=== PATIENT | female | born 1960 | race Caucasian/White ===

== ENCOUNTER 2021-05-29 23:42 | Emergency (ER) | payer OTHER, SELFPAY ==
[2021-05-30] MEDS ORDERED: traMADol HCl 50 MG TAB ONE ×2 (00:03)
[2021-05-30] MEDS ORDERED: Boostrix 0.5 ML (Tdap) VIAL ONE (00:19)
[2021-05-30] MEDS ORDERED: Bacitracin 1 PK ONE (00:36)
== END 2021-05-30 01:00 | disposition home or self-care (01) ==
LOC: BURERS 23:42
DX: S01.01XA Laceration without foreign body of scalp, initial encounter (principal); W01.10XA Fall on same level from slipping, tripping and stumbling with subsequent striking against unspecified object, initial encounter; Z23 Encounter for immunization
CPT/HCPCS: 70450; 90471; 90715

== ENCOUNTER 2021-06-02 18:25 | Emergency (ER) | payer OTHER, SELFPAY ==
[2021-06-02] MEDS ORDERED: Cyclobenzaprine 10 MG TAB ONE (19:22)
[2021-06-02 19:42] LABS: Bacteria/HPF None Seen HPF (None Seen); Bilirubin Negative (Negative); Blood, Urine Small (Negative); Clarity Clear (Clear); Glucose, Urine (Dipstick) Negative (Negative); Ketone, Urine Negative (Negative); Leukocyte Negative (Negative); Nitrite Negative (Negative); Protein, Urine (Dipstick) Negative (Neg-Trace); RBC/HPF 0-3 HPF (0-3); Specific Gravity, Urine 1.015 (1.005-1.030); Squamous Epithelial None Seen HPF (0-3); Urobilinogen 0.2 mg/dL (Less than 2); WBC/HPF None Seen HPF (0-3); pH, Urine 6.5 (5.0-9.0)
== END 2021-06-02 20:19 | disposition home or self-care (01) ==
LOC: BURERS 18:25
DX: S00.03XD Contusion of scalp, subsequent encounter (principal); S16.1XXD Strain of muscle, fascia and tendon at neck level, subsequent encounter; S30.0XXD Contusion of lower back and pelvis, subsequent encounter; M47.816 Spondylosis without myelopathy or radiculopathy, lumbar region; M47.812 Spondylosis without myelopathy or radiculopathy, cervical region; W01.0XXD Fall on same level from slipping, tripping and stumbling without subsequent striking against object, subsequent encounter
CPT/HCPCS: 72040; 72100; 81003; 81015